=== PATIENT | female | born 1995 | race Caucasian/White ===

== ENCOUNTER → 2016-10-28 | Outpatient (REF) | payer BC | LOC: M LAB REF 21:12 | PROVIDERS: ATTEND Physician Assistant Medical | DX: J02.9 Acute pharyngitis, unspecified (principal) ==

== ENCOUNTER → 2018-11-06 | Outpatient (CLI) | payer BC ==
[2018-11-07 10:13] LABS: BASO # 0.1 10^3/uL (0.0-0.2); BASO % 0.4 % (0.0-1.0); EOS # 0.2 10^3/uL (0.0-0.50); EOS % 1.7 % (0.0-3.0); HEMATOCRIT 42.2 % (36.0-47.0); HEMOGLOBIN 13.2 g/dl (12.0-15.5); LYMPH # 2.6 10^3/uL (1.5-6.5); LYMPH % 18.6 % (24.0-44.0); MEAN CORPUSCULAR HEMOGLOBIN 29.5 pg (27.0-33.0); MEAN CORPUSCULAR HGB CONC 31.3 g/dl (32.0-36.5); MEAN CORPUSCULAR VOLUME 94.2 fl (80.0-96.0); MONO # 0.7 10^3/uL (0.0-0.8); MONO % 5.1 % (0.0-5.0); NEUTROPHILS # 10.2 10^3/uL (1.8-7.7); NEUTROPHILS % 73.7 % (36.0-66.0); PLATELET COUNT, AUTOMATED 296 10^3/uL (150-450); RED BLOOD COUNT 4.48 10^6/uL (4.00-5.40); WHITE BLOOD COUNT 13.8 10^3/uL (4.0-10.0)
[2018-11-07 11:25] LABS: HEPATITIS C VIRUS ABY INDEX 0.1 INDEX (<0.8); HIV 1&2 SCREEN CENTAUR NEGATIVE (NEGATIVE); RUBELLA IgG QUALITATIVE EQUIVOCAL (IMMUNE)
[2018-11-07 12:24] LABS: CHLAMYDIA DNA AMPLIFICATION NEGATIVE (NEGATIVE); GC DNA AMPLIFICATION NEGATIVE (NEGATIVE)
== END ==
LOC: M SMT 13:54
PROVIDERS: ATTEND Advanced Practice Midwife
DX: Z34.81 Encounter for supervision of other normal pregnancy, first trimester (principal); Z3A.09 9 weeks gestation of pregnancy
CPT/HCPCS: 36415; 85025; 86762; 86780; 86803; 86850; 87086; 87340; 87389; 87491; 87591; G0123

== ENCOUNTER → 2019-01-06 | Outpatient (CLI) | payer BC ==
--- NOTE | 2019-01-07 06:30 | REP ---
Clinical: Anatomical evaluation. Comparison: None . Findings: Examination demonstrates a single live intrauterine in breech presentation. motion is identified by technologist. Placenta is noted posterior and grade zero without evidence for placenta previa or abruption. Amniotic fluid volume is normal. Cervix measures 3.0 cm in length and appears closed. No evidence for nuchal cord. Gestational age by LMP 18 weeks 0 days with DEAN 06/09/2019 . Gestational age by current measurements 17 weeks 6 days with DEAN 06/10/2019 . FHR equals 155 beats per minute. BPD 4.0 cm 18 weeks 1 day HC 15.1 cm 18 weeks 1 day AC 12.4 cm 18 weeks 0 days FL 2.5 cm 17 weeks 4 days HL 2.5 cm 17 weeks 5 days HC/AC ratio 1.22 Estimated weight 211 grams ( 40th percentile). Anatomical assessment demonstrates normal structures including cranium, cavum, cerebellum/posterior fossa, lungs, diaphragm, stomach, cord insertion/three-vessel cord. Limited evaluation of the cord plexus, facial features, heart/ventricular outflow tracts, kidneys/bladder, spine, extremities. Impression: Single live intrauterine in breech presentation demonstrating appropriate interval growth. Anatomical limitations as noted above may warrant reevaluation and follow-up. Electronically Signed by Jarocho Thayer MD 01/07/2019 06:21 A
== END ==
LOC: M RAD 16:25
PROVIDERS: ATTEND Advanced Practice Midwife
DX: Z34.82 Encounter for supervision of other normal pregnancy, second trimester (principal)

== ENCOUNTER → 2019-02-06 | Outpatient (CLI) | payer BC ==
--- NOTE | 2019-02-06 22:50 | REP ---
OB ULTRASOUND: Real-time sonographic evaluation of the gravid uterus performed. There is a single living intrauterine gestation, the estimated gestational age 22 weeks 3 days, EDC 06/09/2019. Today's measurements indicate appropriate growth. BPD 58 mm = 23 weeks 6 days, 89th percentile HC 213 mm = 23 weeks 2 days, 79th percentile AC 190 mm = 23 weeks 5 days, 79th percentile FL 37 mm = 21 weeks 6 days, 36th percentile HC/AC ratio 1.12, within normal range. Estimated weight 554 grams, 64th percentile. Cervix is closed and measures 3.1 cm in length. heart rate 174 beats per minute. SEEN/GROSSLY UNREMARKABLE Lateral ventricles yes Posterior fossa yes Upper lip yes Four-chamber heart yes LVOT yes RVOT yes Stomach yes Cord insertion yes Three vessel cord yes Kidneys no Bladder yes Spine no Placenta: Posterior and fundal and is grade 1 with no previa or abruption. Amniotic fluid: Within normal limits. Electronically Signed by Maximus Handley MD 02/07/2019 03:37 P
== END ==
LOC: M RAD 15:43
PROVIDERS: ATTEND Advanced Practice Midwife
DX: Z34.02 Encounter for supervision of normal first pregnancy, second trimester (principal); Z3A.22 22 weeks gestation of pregnancy

== ENCOUNTER → 2019-03-06 | Outpatient (CLI) | payer BC ==
[2019-03-06 10:57] LABS: HEMATOCRIT 36.6 % (36.0-47.0); HEMOGLOBIN 12.1 g/dl (12.0-15.5); MEAN CORPUSCULAR HEMOGLOBIN 30.3 pg (27.0-33.0); MEAN CORPUSCULAR HGB CONC 33.1 g/dl (32.0-36.5); MEAN CORPUSCULAR VOLUME 91.5 fl (80.0-96.0); PLATELET COUNT, AUTOMATED 238 10^3/uL (150-450); WHITE BLOOD COUNT 12.5 10^3/uL (4.0-10.0)
== END ==
LOC: M LAB 09:17
PROVIDERS: ATTEND Advanced Practice Midwife
DX: Z34.02 Encounter for supervision of normal first pregnancy, second trimester (principal); Z3A.00 Weeks of gestation of pregnancy not specified

== ENCOUNTER → 2019-03-11 | Outpatient (CLI) | payer BC ==
--- NOTE | 2019-03-11 19:21 | REP ---
Clinical: Anatomical evaluation. Comparison: 02/06/2019 . Findings: Examination demonstrates a single live intrauterine in cephalic presentation. motion is identified by technologist. Placenta is noted posterior and grade zero without evidence for placenta previa or abruption. Amniotic fluid volume is normal. Cervix measures 2.8 cm in length and appears closed. Nuchal cord cannot be excluded. Gestational age by LMP 27 weeks 1 day with DEAN 06/09/2019 . Gestational age by current measurements 27 weeks 3 days with DEAN 06/07/2019 . FHR equals 140 beats per minute. Estimated weight 997 grams ( 37 percentile). Amniotic fluid index: 19.4 cm Umbilical cord SD ratio: 3.82 Anatomical assessment demonstrates normal structures including cranium, choroid plexus, cavum, cerebellum/posterior fossa, lungs, four-chamber heart/ventricular outflow tracts, diaphragm, stomach, cord insertion/three-vessel cord, kidneys/bladder, spine, and extremities. Impression: 1. Single live intrauterine in cephalic presentation demonstrating appropriate interval growth. In conjunction with prior examination anatomical assessment is complete and normal. No gross abnormalities are identified. 2. Nuchal cord cannot be excluded. Electronically Signed by Jarocho Thayer MD 03/11/2019 07:13 P
== END ==
LOC: M RAD 17:22
PROVIDERS: ATTEND Advanced Practice Midwife
DX: Z34.02 Encounter for supervision of normal first pregnancy, second trimester (principal)

== ENCOUNTER → 2019-05-13 | Outpatient (REF) | payer BC, MEDICAID | LOC: M SFHCWAGY 17:05 | PROVIDERS: ATTEND Specialist | DX: Z36.85 Encounter for antenatal screening for Streptococcus B (principal) ==

== ENCOUNTER → 2019-05-20 | Outpatient (CLI) | payer BC, MEDICAID ==
[2019-05-20 17:58] LABS: ALBUMIN 3.1 GM/DL (3.2-5.2); ALT/SGPT 15 U/L (12-78); BILIRUBIN,DIRECT 0.2 MG/DL (0.0-0.2); BILIRUBIN,TOTAL 0.5 MG/DL (0.2-1.0); TOTAL PROTEIN 6.9 GM/DL (6.4-8.2)
[2019-05-20 18:25] LABS: HIV 1&2 SCREEN CENTAUR NEGATIVE (NEGATIVE)
== END ==
LOC: M PLALAB 14:30
PROVIDERS: ATTEND Advanced Practice Midwife
DX: Z34.93 Encounter for supervision of normal pregnancy, unspecified, third trimester (principal); L29.9 Pruritus, unspecified

== ENCOUNTER 2019-06-13 12:24 | Inpatient (IN) | payer BC, MEDICAID ==
[~2019-06-13] VITALS: Ht 160 cm; Wt 80.0 kg
[2019-06-13] VITALS (8 sets, daily range): BP systolic 107–126; BP diastolic 58–82
[2019-06-13] MEDS ORDERED: PRENTAB9 PO (12:58)
[2019-06-13] MEDS ORDERED: OMEP-218 PO (12:58)
[2019-06-13 13:57] LABS: HEMATOCRIT 40.4 % (36.0-47.0); HEMOGLOBIN 13.6 g/dl (12.0-15.5); MEAN CORPUSCULAR HEMOGLOBIN 29.8 pg (27.0-33.0); MEAN CORPUSCULAR HGB CONC 33.7 g/dl (32.0-36.5); MEAN CORPUSCULAR VOLUME 88.4 fl (80.0-96.0); PLATELET COUNT, AUTOMATED 225 10^3/uL (150-450); RED BLOOD COUNT 4.57 10^6/uL (4.00-5.40); WHITE BLOOD COUNT 13.8 10^3/uL (4.0-10.0)
--- NOTE | 2019-06-13 14:13 | HPE ---
DATE OF ADMISSION: 06/13/2019 HISTORY OF PRESENT ILLNESS: A 23-year-old G1, P0 female at 40-4/7 weeks gestation by last menstrual period (LMP) consistent with nine week ultrasound and estimated date of confinement (EDC) of 06/09/2019, presents for labor induction. She has occasional contractions. She denies vaginal bleeding. There is good movement. COURSE: The patient initiated care at [facility]. History is significant for omphalocele repair as a fetus. She had no complications. MEDICAL HISTORY: Congenital omphalocele. SURGICAL HISTORY: Repair of congenital omphalocele. ALLERGIES: None. SOCIAL HISTORY: The patient lives in [place]. She denies cigarettes, alcohol or drug use. Father of the baby is involved. FAMILY HISTORY: Noncontributory. PHYSICAL EXAMINATION: Blood pressure 134/74, pulse 84. No apparent distress. HEAD AND NECK EXAM: Normal. LUNGS: Clear. HEART: Regular rate and rhythm. ABDOMEN: Nontender. Gravid. HEART TONES: Category 1. STERILE VAGINAL EXAM: 3 cm, 100%, -2, posterior soft vertex. EXTREMITIES: Nontender. LABORATORIES: Group B Streptococcus (GBS) negative. ASSESSMENT: A 24-year-old G1 at 40-4/7 weeks gestation presents for labor induction. PLAN: The patient is admitted on 06/13/2019. Risks of induction were discussed.
[2019-06-13] MEDS: miSOPROStol 50 MCG 1/2 TAB (S0191) SL SCH ×2 (14:20→18:30)
[2019-06-13] MEDS: LR 1,000 ML IV SCH (21:08)
[2019-06-13] MEDS ORDERED: OXYTOCIN DRIP 30 UNITS in IV 1 EA IV SCH (21:15)
[2019-06-13] MEDS ORDERED: PROMETHAZINE INJ 25 MG/ML VIAL (J2550) IV ONE (23:15)
[2019-06-13] MEDS ORDERED: BUTORPHANOL 2 MG/ML INJ (J0595) IV ONE (23:15)
[2019-06-14] VITALS (40 sets, daily range): BP systolic 101–148; BP diastolic 55–92
[2019-06-14] MEDS ORDERED: FENTANYL 2MCG/ML ROPIVACAINE 0.2% IN 0.9% NACL 100ML IVBAG As Ordered ONE (01:43)
[2019-06-14] MEDS: LR 1,000 ML IV SCH ×2 (02:09→08:13)
[2019-06-14] MEDS ORDERED: ONDANSETRON 4MG/2ML VIAL (J2405) IV PRN ×2 (04:15→09:30)
[2019-06-14] MEDS ORDERED: EPIDURAL COMMENT XX SCH (04:15)
[2019-06-14] MEDS ORDERED: NALOXONE INJ 0.4 MG/1 ML VIAL (J2310) IV PRN (04:15)
[2019-06-14] MEDS ORDERED: LACTATED RINGER'S 1000 ML IV PRN (04:15)
[2019-06-14] MEDS ORDERED: EPIDURAL/PCA KEYS XX PRN (04:15)
[2019-06-14] MEDS ORDERED: diphenhydrAMINE INJ 50MG/ML VIAL (J1200) IV PRN (04:15)
[2019-06-14] MEDS ORDERED: REFRIGERATOR IV KEYS XX PRN (04:15)
[2019-06-14] MEDS ORDERED: ePHEDrine SULFATE 25 MG/5 ML(5MG/ML) SYRINGE IV PRN (04:15)
[2019-06-14] MEDS ORDERED: FENTANYL/ROPIVACAINE/NACL BAG 100 ML EPIDURAL SCH (04:15)
[2019-06-14] MEDS ORDERED: IBUPROFEN 800 MG TAB PO PRN (09:30)
[2019-06-14] MEDS ORDERED: RHOGAM 300 MCG (1500 IU) INJ (J2790) IM SCH (09:30)
[2019-06-14] MEDS ORDERED: DOCUSATE SODIUM 100 MG CAP PO PRN (09:30)
[2019-06-14] MEDS ORDERED: ACETAMINOPHEN TAB 650MG DOSE (2X325MG) PO PRN (09:30)
[2019-06-14] MEDS ORDERED: DIBUCAINE 1% OINTMENT 30GM TOP PRN (09:30)
[2019-06-14] MEDS ORDERED: MEASLES,MUMPS,RUBELLA VACCINE INJ (MMR-II) (90707) SC SCH (09:30)
[2019-06-14] MEDS ORDERED: METHYLERGONOVINE MALEATE 0.2 MG TAB PO PRN (09:30)
[2019-06-14] MEDS ORDERED: OXYTOCIN DRIP 30 UNITS in IV 1 EA IV ONE (09:30)
[2019-06-14] MEDS ORDERED: SLF 3 ML SYR IV PRN (11:30)
[2019-06-14] MEDS: SLF 3 ML SYR IV SCH ×2 (14:00→20:38)
[2019-06-14] MEDS: ACETAMINOPHEN 500 MG TAB PO PRN (20:37)
[2019-06-15] MEDS: SLF 3 ML SYR IV SCH (05:49)
[2019-06-15 06:27] VITALS: BP 118/59
[2019-06-15] MEDS: PRENATAL VITAMINS CHEWABLE TABLET PO SCH (08:28)
[2019-06-15] MEDS: ACETAMINOPHEN 500 MG TAB PO PRN ×2 (11:55→18:20)
--- NOTE | 2019-06-15 14:32 | DN ---
DATE: 06/14/2019 PREDELIVERY DIAGNOSIS: 40 week gestation, labor induction. POSTDELIVERY DIAGNOSIS: Delivered. PROCEDURE: Spontaneous vaginal delivery. FINISHED CLOTH CHECKER: Dr. Mark Anthony Naik ANESTHESIA: Epidural. ESTIMATED BLOOD LOSS: 300 mL. FINDINGS: 7 pound 10 ounce male infant. scores 8 and 9. DELIVERY SUMMARY: After a 20 minute second stage, the patient had a spontaneous delivery of a 7 pound 10 ounce male , scores of 8 and 9 under epidural anesthesia. There was no nuchal cord. The shoulders delivered with ease. The infant was handed to the mother. The cord was doubly clamped and cut. The placenta delivered spontaneously and appeared to be intact. The patient received IV Pitocin immediately after delivery of the placenta. A small second degree perineal laceration was repaired with 2-0 chromic in the usual fashion. Sponge and needle counts were correct.
[2019-06-15] MEDS: IBUPROFEN 600 MG TAB PO PRN (17:06)
[2019-06-15 18:24] VITALS: BP 131/75
[2019-06-16] MEDS: IBUPROFEN 600 MG TAB PO PRN ×2 (01:46→09:01)
[2019-06-16 05:53] VITALS: BP 117/58
[2019-06-16] MEDS: ACETAMINOPHEN 500 MG TAB PO PRN (05:53)
[2019-06-16] MEDS ORDERED: IBUP80TA PO (07:21)
[2019-06-16] MEDS ORDERED: ACET-683 PO (07:21)
[2019-06-16] MEDS: PRENATAL VITAMINS CHEWABLE TABLET PO SCH (07:52)
== END 2019-06-16 11:50 | disposition home or self-care (01) | DRG 560 ==
LOC: M LDI 12:24 → M OBS 06-14 11:17
PROVIDERS: ADMIT Specialist; ATTEND Specialist
PROC: 10E0XZZ Delivery of Products of Conception, External Approach (ICD-10-PCS; principal; 2019-06-14)
PROC: 0HQ9XZZ Repair Perineum Skin, External Approach (ICD-10-PCS; 2019-06-14)
DX: O48.0 Post-term pregnancy (principal); O70.1 Second degree perineal laceration during delivery; Z37.0 Single live birth; Z3A.40 40 weeks gestation of pregnancy

== ENCOUNTER → 2019-09-14 | Outpatient (REF) | payer BC ==
[~2019-09-14] MED LIST: ACET-683 PO; IBUP80TA PO; OMEP-218 PO; PRENTAB9 PO
== END ==
LOC: M SFHCWAGY 08:16
PROVIDERS: ATTEND Specialist
DX: Z01.419 Encounter for gynecological examination (general) (routine) without abnormal findings (principal)

== ENCOUNTER → 2020-09-23 | Outpatient (REF) | payer OTHER, MEDICAID | LOC: M SFHCWAGY 19:17 | PROVIDERS: ATTEND Specialist | DX: Z12.4 Encounter for screening for malignant neoplasm of cervix (principal) ==